=== PATIENT | female | born 1940 | race Caucasian/White ===

== ENCOUNTER 2017-01-14 13:42 | Outpatient (CLI) | payer OTHER ==
[2017-01-14] MEDS ORDERED: GADOPENTETATE DIMEGLUMINE 15 ML VIAL IV ONE (13:59)
== END 2017-01-14 18:49 | disposition home or self-care (01) ==
LOC: EEVIPCON 13:42 → SMI 13:42
DX: G93.9 Disorder of brain, unspecified (principal)
CPT/HCPCS: 70553; A9579